=== PATIENT | female | born 1985 | race Two or more races ===

== ENCOUNTER → 2017-04-05 | Outpatient (CLI) | payer OTHER ==
[2017-04-05 12:00] LABS: BASOPHIL % 0.4 % (0-2); PLATELET COUNT 318 x10^3mcL (130-400); RED CELL DISTRIBUTION WIDTH 13.6 % (11.5-14.5)
[2017-04-06 08:31] LABS: ESTRADIOL 43.8 pg/mL (.); INSULIN 25.9 uIU/mL (2.6-24.9)
== END | disposition home or self-care (01) ==
LOC: LB 11:22
DX: N92.6 Irregular menstruation, unspecified (principal)
CPT/HCPCS: 82670; 82947